=== PATIENT | female | born 1990 | race Caucasian/White ===

== ENCOUNTER 2017-09-18 09:19 | Emergency (ER) | payer OTHER ==
[~2017-09-18] VITALS: Ht 167.6 cm; Wt 59.0 kg
[~2017-09-18 09:19] MED LIST: IRON 100 PLUS1 EACH PO; IRON325 M1 PO; PRENATAL DHA200 MG PO; PRENATAL FORMU1 EAC1 PO
[2017-09-18] MEDS ORDERED: CIPRO500 MG PO (13:28)
[2017-09-18] MEDS ORDERED: IBUPROFEN600 MG PO (13:28)
== END 2017-09-18 13:48 | disposition home or self-care (01) ==
LOC: ED 09:19
DX: K80.20 Calculus of gallbladder without cholecystitis without obstruction (principal); F17.200 Nicotine dependence, unspecified, uncomplicated
CPT/HCPCS: 74020; 74177; 80053; 81001; 83690; 84703; 85025; 99284; Q9967

== ENCOUNTER 2025-03-05 00:07 | Emergency (ER) | payer OTHER, MEDICAID ==
[~2025-03-05] VITALS: Ht 167.6 cm; Wt 77.0 kg
[~2025-03-05 00:07] MED LIST changes: +CIPRO500 MG PO; +IBUPROFEN600 MG PO
[2025-03-05 00:38] VITALS: BP 155/112
== END 2025-03-05 00:38 | disposition other institution, planned readmission (95) ==
LOC: ED 00:07
DX: Z02.89 Encounter for other administrative examinations (principal); F17.200 Nicotine dependence, unspecified, uncomplicated
CPT/HCPCS: 99283